=== PATIENT | male | born 1990 | race Caucasian/White ===

== ENCOUNTER 2018-11-29 09:54 | Emergency (ER) | payer SELFPAY ==
[~2018-11-29] VITALS: Ht 185.4 cm; Wt 86.4 kg
[2018-11-29 10:01] VITALS: BP 145/70; Ht 185.4 cm; Wt 86.4 kg
== END 2018-11-29 10:27 | disposition home or self-care (01) ==
LOC: D.ER 09:54
DX: F41.9 Anxiety disorder, unspecified (principal)